=== PATIENT | female | born 1990 | race Caucasian/White ===

== ENCOUNTER 2016-10-01 09:12 | Emergency (ER) | payer MEDICAID ==
[2016-10-01] MEDS ORDERED: Alum Hydrox/Mag Hydrox/Simeth 30 ML, Lidocaine 2% 15 ML PO ONE ×2 (09:18)
[2016-10-01 09:20] VITALS: BP 152/91
[2016-10-01] MEDS ORDERED: fentaNYL 100 MCG/2 ML SDV IV ONE (09:39)
[2016-10-01] MEDS ORDERED: Pantoprazole 40 MG Vial IVPUSH ONE (09:40)
--- NOTE | 2016-10-01 09:43 | EDM.PDOC ---
ED HPI GI/ABDOMINAL - General Chief Complaint: Abdominal Pain Stated Complaint: abd pain Time Seen by Provider: 10/01/16 09:14 Source of Information: Reports: Patient History Limitations: Reports: No limitations - History of Present Illness INITIAL COMMENTS - FREE TEXT/NARRATIVE: Patient presents to ER with complaints of midepigastric abdominal pain. States has had dull ache all week but today the pain has become very severe. She denies any specific triggers to this, no food or alcohol but does admit she drinks alot of caffeine. She did vomit once yesterday and once today. Has had diarrhea today. Timing/Duration: Reports: Week(s): Location: other (midepigastric) Quality: Reports: burning, cramping Severity: severe Context: Denies: bad/questionable food Associated Symptoms (-Female): Reports: back pain, diarrhea, loss of appetite , nausea/vomiting. Denies: bloody stools, fever/chills - Related Data Allergies/ADRs: Allergies Allergy/AdvReac Type Severity Reaction Status Date / Time cefaclor [From Ceclor] Allergy Cannot Verified 10/01/16 09:25 Remember Past Medical History - Past Health History Medical/Surgical History: Denies Medical/Surgical History Social & Family History - Tobacco Use Smoking Status *Q: Current Every Day Smoker Years of Tobacco use: 11 Packs/Tins Daily: 0.5 Second Hand Smoke Exposure: Yes - Alcohol Use Days Per Week of Alcohol Use: 0 - Recreational Drug Use Recreational Drug Use: No ED ROS GENERAL - Review of Systems Review Of Systems: See Below Constitutional: Denies: fever, chills, weakness, fatigue HEENT: Reports: No symptoms Respiratory: Denies: Shortness of Breath, Cough Cardiovascular: Denies: Chest pain, Edema, Lightheadedness Endocrine: Denies: fatigue GI/Abdominal: Reports: Abdominal pain, Diarrhea, Nausea, Vomiting. Denies: Constipation, Hematochezia, Melena : Reports: no symptoms Musculoskeletal: Reports: back pain Skin: Reports: no symptoms Neurological: Reports: No Symptoms ED EXAM, GI/ABD - Physical Exam Exam: See Below Exam Limited By: No limitations General Appearance: alert, WD/WN, moderate distress Ears: normal external exam, normal TMs Nose: normal inspection, normal mucosa, no blood Throat/Mouth: Normal inspection, Normal oropharynx Head: normocephalic Neck: normal inspection, supple, non-tender Respiratory/Chest: lungs clear Cardiovascular: regular rate, rhythm GI/Abdominal: normal bowel sounds, soft, tenderness (midepigastric) Extremities: normal inspection Neurological: alert, oriented Psychiatric: anxious Skin Exam: Warm, Dry Course - Vital Signs Last Recorded V/S: Last Vital Signs Temp 97.8 F 10/01/16 09:16 Pulse 86 10/01/16 09:16 Resp 20 10/01/16 09:16 BP 152/91 H 10/01/16 09:16 Pulse Ox 99 10/01/16 09:16 - Orders/Labs/Meds Orders: Active Orders 24 hr Category Date Time Status Enema [RC] ASDIRECTED Care 10/01/16 10:44 Active Abdomen 2V AP Flat Upright [CR] Stat Exams 10/01/16 09:23 Taken Labs: Laboratory Tests 10/01/16 10/01/16 10/01/16 Range/Units 09:21 09:21 09:23 WBC 12.5 H (5.0-10.0) 10^3/uL RBC 4.71 (4.00-5.50) 10^6/uL Hgb 13.0 (12.0-16.0) g/dL Hct 40.5 (37.0-47.0) % MCV 86.0 (82.0-94.0) fL MCH 27.6 (27.0-32.0) pg MCHC 32.1 L (33.0-38.0) g/dL RDW Coeff of Stas 15.7 H (11.0-15.0) % Plt Count 335 (150-400) 10^3/uL Neut % (Auto) 69.8 (35-85) % Lymph % (Auto) 19.9 (10-55) % Hartley % (Auto) 7.2 (0-16) % Eos % (Auto) 3.0 (0-5) % Baso % (Auto) 0.1 (0-3) % Neut # (Auto) 8.71 H (1.80-7.00) 10^3/uL Lymph # (Auto) 2.48 (1.00-4.80) 10^3/uL Hartley # (Auto) 0.90 H (0.00-0.80) 10^3/uL Eos # (Auto) 0.38 (0.00-0.45) 10^3/uL Baso # (Auto) 0.01 10^3/uL Sodium 140 (136-145) mEq/L Potassium 3.9 (3.5-5.0) mEq/L Chloride 102 (98-106) mEq/L Carbon Dioxide 28 (21-32) mmol/L BUN 10 (7-18) mg/dL Creatinine 0.9 (0.6-1.0) mg/dL Est Cr Clr Drug Dosing 91.98 mL/min Estimated GFR (MDRD) > 60 (>=60) mL/min Glucose 93 (75-99) mg/dL Calcium 8.8 (8.4-10.1) mg/dL Total Bilirubin 0.3 (0.0-1.0) mg/dL AST 22 (15-37) U/L ALT 24 (12-78) U/L Alkaline Phosphatase 144 H (46-116) U/L C-Reactive Protein 0.8 (0.2-0.8) mg/dL Total Protein 7.3 (6.4-8.2) g/dL Albumin 3.1 L (3.4-5.0) g/dL Amylase 63 (25-115) U/L Urine Color Yellow (YELLOW) Urine Appearance Clear (CLEAR) Urine pH 7.0 (4.5-8.0) Ur Specific [place] 1.020 (1.003-1.020) Urine Protein 30 H (NEGATIVE) mg/dL Urine Glucose (UA) Negative (NEGATIVE) mg/dL Urine Ketones Negative (NEGATIVE) mg/dL Urine Occult Blood Large H (NEGATIVE) Urine Nitrite Negative (NEGATIVE) Urine Bilirubin Negative (NEGATIVE) Urine Urobilinogen 0.2 (0.2-1.0) EU/dL Ur Leukocyte Esterase Trace H (NEGATIVE) Urine RBC 30-40 H (0-5) /HPF Urine WBC 0-5 (0-5) /HPF Ur Epithelial Cells Moderate H (NOT SEEN) /HPF Urine Bacteria Occasional H (NOT SEEN) /HPF Meds: Medications Discontinued Medications Generic Name Dose Route Start Last Admin Trade Name Freq PRN Reason Stop Dose Admin Al Hydroxide/Mg Hydroxide 30 0 ml 10/01/16 09:18 10/01/16 09:22 ml/ Lidocaine HCl 15 ml PO 10/01/16 09:19 30 ml ONETIME ONE Administration Fentanyl 25 mcg 10/01/16 09:39 10/01/16 10:11 Sublimaze IV 10/01/16 09:40 25 mcg ONETIME ONE Administration Fentanyl Confirm 10/01/16 10:17 10/01/16 10:15 Sublimaze Administered 10/01/16 10:18 Not Given Dose 100 mcg .ROUTE .STK-MED ONE Pantoprazole Sodium 40 mg 10/01/16 09:40 10/01/16 10:11 Protonix Iv IVPUSH 10/01/16 09:41 40 mg ONETIME ONE Administration Pantoprazole Sodium Confirm 10/01/16 10:16 10/01/16 10:15 Protonix Iv Administered 10/01/16 10:17 Not Given Dose 40 mg .ROUTE .STK-MED ONE - Re-Assessments/Exams Free Text/Narrative Re-Assessment/Exam: 10/01/16 09:43 GI cocktail was given. Short term relief obtained. New meds ordered. Awaiting results. 10/01/16 10:40 Patient resting quietly after the Fentanyl. Xray does show air fluid levels, ileus. Did speak with Dr. Grande today about this. Fleets enema ordered. Patient aware. 10/01/16 11:58 Patient is doing well. Had good results from the enema. Urine shows UTI as well. Departure - Departure Time of Disposition: 11:59 Disposition: Home, Self-Care 01 Condition: good Clinical Impression: Ileus UTI (urinary tract infection) Qualifiers: Urinary tract infection type: acute cystitis Referrals: PCP,None [Primary Care Provider] - Forms: ED Department Discharge Additional Instructions: 1. Push fluids 2. Rest 3. Bactrim DS one twice a day for 7 days 4. Omeprazole 20 mg daily for 4 weeks 5. Follow up with primary care provider if ongoing concerns. - My Orders Last 24 Hours: My Active Orders 10/01/16 09:23 Abdomen 2V AP Flat Upright [CR] Stat 10/01/16 10:44 Enema [RC] ASDIRECTED - Assessment/Plan Last 24 Hours: My Active Orders 10/01/16 09:23 Abdomen 2V AP Flat Upright [CR] Stat 10/01/16 10:44 Enema [RC] ASDIRECTED
[2016-10-01 10:16] LABS: CHLORIDE,CL 102 mEq/L (98-106); SODIUM,NA 140 mEq/L (136-145)
[2016-10-01] MEDS ORDERED: Pantoprazole 40 MG Vial ONE (10:16)
[2016-10-01] MEDS ORDERED: fentaNYL 100 MCG/2 ML SDV ONE (10:17)
== END 2016-10-01 12:15 | disposition home or self-care (01) ==
LOC: CC.ED 09:12
DX: N30.00 Acute cystitis without hematuria (principal); K56.7 Ileus, unspecified; F17.210 Nicotine dependence, cigarettes, uncomplicated; Z88.8 Allergy status to other drugs, medicaments and biological substances
CPT/HCPCS: 36415; 74020; 80053; 81001; 82150; 85025; 86140; 96374; 96375; 99284; A9270; C9113; J3010